=== PATIENT | male | born 1935 | race Hispanic/Latino ===

== ENCOUNTER → 2018-10-26 | Day surgery (SDC) | payer MEDICARE ==
[2018-10-25 12:41] LABS: BASOPHILS % 0.4 % (0.0-1.0); EOSINOPHILS # (AUTO) 0.3 (0.0-0.4); EOSINOPHILS % 3.7 % (0.0-6.0); HEMATOCRIT 38.2 % (38.2-49.6); HEMOGLOBIN 12.8 g/dL (14.0-18.0); LYMPHOCYTES # (AUTO) 2.1 (1.0-3.2); LYMPHOCYTES % 26.2 % (18.0-39.1); MEAN CORPUSCULAR HEMOGLOBIN 32.8 pg (28-32); MEAN CORPUSCULAR HGB CONC 33.5 g/dL (31-35); MEAN CORPUSCULAR VOLUME 97.9 fL (81-99); MONOCYTES # (AUTO) 0.7 (0.2-0.8); MONOCYTES % 8.8 % (4.4-11.3); NEUTROPHILS # (AUTO) 4.9 (2.1-6.9); NEUTROPHILS % 60.2 % (38.7-80.0); PLATELET COUNT 157 x10e3/uL (140-360); RED CELL DISTRIBUTION WIDTH 13.2 % (11.7-14.4)
--- NOTE | 2018-10-25 13:33 | Diagnostic Imaging Report ---
EXAMINATION: CHEST 2 VIEWS INDICATION: Pre-admit. COMPARISON: None FINDINGS: TUBES and LINES: None. LUNGS: Lungs are moderately inflated. There is no evidence of pneumonia or pulmonary edema. There is linear subsegmental atelectasis at the left lung base. A 7 mm nodule opacity projects over the left midlung PLEURA: No pleural effusion or pneumothorax. HEART AND MEDIASTINUM: The cardiomediastinal silhouette is unremarkable. There are atherosclerotic calcifications within the aorta. BONES AND SOFT TISSUES: No acute osseous abnormality. Partially seen right proximal humerus prosthesis. Partially seen cervical spine fixation hardware. UPPER ABDOMEN: No free air under the diaphragm. IMPRESSION: No acute radiographic abnormality. A 7 mm nodular opacity projects over the left midlung. Recommend chest CT for further evaluation. Signed by: Dr. Augusto Grey MD on 10/25/2018 1:30 PM
[~2018-10-26] MED LIST: ACETAMINOPHEN/CODEINE 300MG - 30MG TAB ONE; BUPIVACAINE HCL 0.5% INJ 30 ML VIAL INJ ONE; BUSPIRONE HCL5 MG PO; CEFAZOLIN SOD 1 GM/NS 50ML 50 ML IV ONE; DEXAMETHASONE SOD PHOS INJ 4 MG/ML VIAL ONE; DIOVAN80 MG PO; FENTANYL CITRATE/PF 100MCG/2 ML INJ ONE; FINASTERIDE5 MG PO; FLOMAX0.4 MG PO; LAMOTRIGINE100 MG PO; LIDOCAINE HCL 1% LOCAL INJ 20 ML VIAL ONE; LIDOCAINE HCL 2% LOCAL INJ 5 ML SDV VIAL INJ ONE; LOSARTAN POTASS25 MG; MEPERIDINE HCL INJ 25 MG/ML VIAL ONE; METOPROLOL SUCC50 MG PO; MIRTAZAPINE15 MG PO; NORCO 10-325 T1 EACH PO; ONDANSETRON HCL INJ 2MG/ML 2ML 2 MG/ML VIAL ONE; PROPOFOL IV EMULSION 10 MG/ML 20 ML VIAL ONE; SEVOFLURANE INHAL SOLN 250 ML PEN BTL ONE; TRAZODONE HCL50 MG PO; ULTRAM 50MG50 MG PO
--- OUTSIDE RECORDS SUMMARY | 2018-10-26 05:11 | XMS REPORT ---
Author Lauren Carcamo eClinicalWorks Address Unknown Phone Unavailable Care Team Providers Care Waitstaff Captain Name Role Phone Lauren Ortega Unavailable Allergies, Adverse Reactions, Alerts Substance Reaction Event Type N.K.D.A. Info Not Available Non Drug Allergy Encounters Encounter Location Date Unknown [facility] January 13, 2014 Dr. Murrell [facility] Feb 12, 2014 LVM [facility] Feb 12, 2014 Unknown [facility] Mar 26, 2014 Med not covered by ins [facility] December 10, 2013 appeal [facility] December 17, 2013 Confirmed [facility] December 30, 2013 Unknown [facility] Mar 17, 2015 Letter of medical necessity [facility] Apr 05, 2014 confirmed [facility] September 01, 2014 pt says that referral was sent already - jdg;conf appt/demos kd [facility] October 12, 2015 Buspirone refill [facility] Mar 20, 2015 confirmed - kd [facility] May 04, 2015 Unknown [facility] Mar 16, 2015 SCRIPT [facility] Mar 19, 2015 Problems Problem Type Condition ICD-9 Code Onset Dates Condition Status Assessment Obesity E66.9 Active Assessment Tobacco non-user Z78.9 Active Assessment Patient had no falls in past year Z78.9 Active Assessment Screening for hypertension Z13.6 Active Problem Dizziness R42 Active 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 Problem 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 Assessment 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 Problem Screening for tobacco use V70.3 Active Problem Obesity, unspecified 278.00 Active Medications Medication Code System Code Instructions Start Date End Date Status Dosage Trazodone HCl [facility] [address]-71 100 MG by mouth Q HS Active 1 tablet Celecoxib [facility] [address]-35 200 MG PO QD Active 1 capsule Finasteride [facility] [address]-75 5 MG PO QD Active 1 tablet Meclizine HCl [facility] [address]-94 25 MG Orally tid prn Active 1/2 tablet BusPIRone HCl [facility] [address]-52 10 MG Orally BID Active 1 tablet Tamsulosin HCl [facility] [address]-47 0.4 MG Orally QD Active 1 tablet Omeprazole [facility] [address]-00 20 mg PO QD Active 1 capsule Tramadol HCl [facility] [address]-41 50 MG by mouth TID Active 1-2 tablets Hydrocodone-Acetaminophen [facility] [address]-53 10-325 MG PO TID Active 1 tablet Valsartan [facility] [address]-38 80 mg PO QD Active 1 Lamictal [facility] [address]-91 25 MG Orally BID May 04, 2015 Active 2- 3 tablets Toprol XL [facility] [address]-08 50 mg PO QD Active 1 tablet Mirtazapine [facility] [address]-82 15 MG by mouth Q HS Active 1 tablet Social History Social History Element Qualifiers Date Reported Education history . Did not graduate high school yes October 12, 2015 Alcohol Screening: . Did you have a drink containing alcohol in the past year?: No, Points: 0, Interpretation: Negative October 12, 2015 Tobacco Use: . Are you a:: never smoker , Additional Findings: Tobacco Non-User: Current non-smoker October 12, 2015 Marital Status: . October 12, 2015 Do you drink alcohol? . Status: No October 12, 2015 Occupation: . Retired October 12, 2015 Vital Signs Date/Time: October 12, 2015 Weight 177 lbs Height 64 in Summary Purpose eClinicalWorks Submission
--- OUTSIDE RECORDS SUMMARY | 2018-10-26 05:11 | XMS REPORT ---
Author Author Felipa Euceda Organization eClinicalWorks Address Unknown Phone Unavailable Care Team Providers Care Operations Executive Name Role Phone Felipa Euceda CP Unavailable Allergies, Adverse Reactions, Alerts Substance Reaction Event Type N.K.D.A. 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 Assessment Obesity, unspecified 278.00 Active Assessment Screening for tobacco use V70.3 Active Medications Medication Code System Code Instructions Start Date End Date Status Dosage Mirtazapine [facility] [address]-69 15 MG by mouth Q HS Active 1 tablet Amitiza [facility] [address]-70 24 MCG by mouth BID Active 1 capsule Trazodone HCl [facility] [address]-78 100 mg by mouth Q HS Active 1 tablet BusPIRone HCl [facility] [address]-75 10 mg by mouth BID Active 1 tablet Tramadol HCl [facility] [address]-34 50 mg by mouth TID Active 1-2 tablets Hydrocodone-Acetaminophen [facility] [address]-50 10-325 MG by mouth QID Active 1 tablet Indocin SR Unknown 0 75 mg Orally BID December 09, 2013 Active 1 capsule with food Social History Social History Element Qualifiers Date Reported Education history . Did not graduate high school yes December 30, 2013 Alcohol Screening: . Did you have a drink containing alcohol in the past year?: No, Points: 0, Interpretation: Negative December 30, 2013 Tobacco Use: . Are you a:: never smoker December 30, 2013 Marital Status: . December 30, 2013 Do you drink alcohol? . Status: No December 30, 2013 Occupation: . Retired December 30, 2013 Vital Signs Date/Time: December 30, 2013 Weight 175 lbs Height 64 in Summary Purpose eClinicalWorks Submission
--- OUTSIDE RECORDS SUMMARY | 2018-10-26 05:11 | XMS REPORT ---
Author Author Lauren Ortega eClinicalWorks Address Unknown Phone Unavailable Care Team Providers Care Underwear Trimmer Name Role Phone Lauren Ortega CP Unavailable Allergies, Adverse Reactions, Alerts Substance Reaction Event Type N.K.D.A. 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 Problem Obesity, unspecified 278.00 Active Assessment 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 Assessment Encounter for long-term (current) use of other medications Z79.899 Active Assessment Tobacco non-user Z78.9 Active Assessment Screening for obesity Z13.89 Active Medications Medication Code System Code Instructions Start Date End Date Status Dosage Trazodone HCl [facility] 81956300817 100 MG by mouth Q HS Active 1 tablet Hydrocodone-Acetaminophen ND 20474361393 10-325 MG PO TID Active 1 tablet Tamsulosin HCl [facility] [address]-54 0.4 MG Orally QD Active 1 tablet Valsartan [facility] [address]-72 80 mg PO QD Active 1 BusPIRone HCl ND 46746125847 10 MG Orally BID Active 1 tablet Mirtazapine ND 18811794719 15 MG Orally at bedtime Jul 04, 2016 Active 1 tablet on the tongue and allow to dissolve before bedtime in the evening Tramadol HCl ND 91296104561 50 MG by mouth TID Active 1-2 tablets Omeprazole ND 95911555117 20 mg PO QD Active 1 capsule Lamictal ND 71049729761 25 MG orally BID Active 3 TABLETs Finasteride ND 75647080219 5 MG PO QD Active 1 tablet Toprol XL NDC [address]-82 50 mg PO QD Active 1 tablet Mirtazapine [facility] 79698543910 15 MG by mouth Q HS Active 1 tablet Vital Signs Date/Time: Jul 04, 2016 BMI 29.86 Index Weight 174 lbs Height 64 in Results No Known Results Summary Purpose eClinicalWorks Submission
--- OUTSIDE RECORDS SUMMARY | 2018-10-26 05:11 | XMS REPORT ---
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 Did not graduate high school yes December 09, 2013 Alcohol Screening: . Did you have a drink containing alcohol in the past year?: No, Points: 0, Interpretation: Negative December 09, 2013 Tobacco Use: . Are you a:: never smoker December 09, 2013 Marital Status: . December 09, 2013 Occupation: . Retired December 09, 2013 Summary Purpose eClinicalWorks Submission
--- OUTSIDE RECORDS SUMMARY | 2018-10-26 05:11 | XMS REPORT ---
Author Author Felipa Euceda Organization eClinicalWorks Address Unknown Phone Unavailable Care Team Providers Care Typewriters Functional Tester Name Role Phone Felipa Euceda CP Unavailable Allergies, Adverse Reactions, Alerts Substance Reaction Event Type N.K.D.A. Info Not Available Non Drug Allergy Encounters Encounter Location Date Unknown [facility] January 13, 2014 Dr. 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 Assessment Screening for obesity V77.8 Active Problem 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 Assessment Screening for tobacco use V70.3 Active Medications Medication Code System Code Instructions Start Date End Date Status Dosage Tramadol HCl [facility] [address]-22 50 mg by mouth TID Active 1-2 tablets [facility] [address]-28 100 mg by mouth Q HS Active 1 tablet Indocin SR Unknown 0 75 mg Orally BID December 09, 2013 Active 1 capsule with food Amitiza [facility] [address]-82 24 MCG by mouth BID Active 1 capsule BusPIRone HCl [facility] [address]-84 10 mg by mouth BID Active 1 tablet Mirtazapine [facility] [address]-15 15 MG by mouth Q HS Active 1 tablet Hydrocodone-Acetaminophen [facility] [address]-33 10-325 MG by mouth QID Active 1 tablet AcetaZOLAMIDE [facility] [address]-99 250 MG Orally qd x 3 days then bid January 13, 2014 Active 1 tablet Social History Social History Element Qualifiers Date Reported Education history . Did not graduate high school yes Mar 26, 2014 Alcohol Screening: . Did you have a drink containing alcohol in the past year?: No, Points: 0, Interpretation: Negative Mar 26, 2014 Tobacco Use: . Are you a:: never smoker , Additional Findings: Tobacco Non-User: Current non-smoker Mar 26, 2014 Marital Status: . Mar 26, 2014 Do you drink alcohol? . Status: No Mar 26, 2014 Occupation: . Retired Mar 26, 2014 Vital Signs Date/Time: January 13, 2014 Weight 170 lbs Height 64 in Summary Purpose eClinicalWorks Submission
--- OUTSIDE RECORDS SUMMARY | 2018-10-26 05:11 | XMS REPORT ---
Author Author MondayNisha eClinicalWorks Address Unknown Phone Unavailable Care Team Providers Care Leading Firefighter Name Role Phone MondayNisha CP Unavailable Encounters Encounter Location Date Unknown [facility] January 13, 2014 Dr. Murrell [facility] Feb 12, 2014 LVM [facility] Feb 12, 2014 Unknown [facility] Mar 26, 2014 Med not covered by ins [facility] December 10, 2013 appeal [facility] December 17, 2013 Confirmed [facility] December 30, 2013 Letter of medical necessity [facility] Apr 05, 2014 Problems Problem Type Condition ICD-9 Code Onset Dates Condition Status Assessment 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 Problem 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 Medications Medication Code System Code Instructions Start Date End Date Status Dosage Indomethacin [facility] [address]-60 25 MG Orally Twice a day Feb 14, 2014 Apr 15, 2014 Active 1 capsule with food BusPIRone HCl [facility] [address]-14 10 mg by mouth BID Active 1 tablet Amitiza [facility] [address]-50 24 MCG by mouth BID Active 1 capsule Tramadol HCl [facility] [address]-58 50 mg by mouth TID Active 1-2 tablets Trazodone HCl [facility] [address]-65 100 mg by mouth Q HS Active 1 tablet Nexium [facility] [address]-13 20 mg Orally QD Active 1 capsule AcetaZOLAMIDE [facility] [address]-41 250 MG Orally BID January 13, 2014 Active 1 tablet Mirtazapine [facility] [address]-37 15 MG by mouth Q HS Active 1 tablet Hydrocodone-Acetaminophen [facility] [address]-81 10-325 MG by mouth QID Active 1 tablet Social History Social History [...] 2014 Occupation: . Retired Mar 26, 2014 Summary Purpose eClinicalWorks Submission
--- OUTSIDE RECORDS SUMMARY | 2018-10-26 05:11 | XMS REPORT ---
Author Author Nisha Reese eClinicalWorks Address Unknown Phone Unavailable Care Team Providers Care Health And Safety Manager Name Role Phone MondayNisha Unavailable Encounters Encounter Location Date Med not covered by 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
--- OUTSIDE RECORDS SUMMARY | 2018-10-26 05:11 | XMS REPORT ---
Author Lauren Carcamo eClinicalWorks Address Unknown Phone Unavailable Care Team Providers Care Barrel Polisher Name Role Phone Lauren Ortega Unavailable Allergies, Adverse Reactions, Alerts Substance Reaction Event Type N.K.D.A. Info Not Available Non Drug Allergy Encounters Encounter Location Date Unknown [facility] January 13, 2014 Dr. 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 Assessment Screening for hypertension V81.1 Active Assessment Screening for obesity V77.8 Active Assessment Special screening for other specified conditions V82.89 Active Medications Medication Code System Code Instructions Start Date End Date Status Dosage Mirtazapine [facility] [address]-31 15 MG by mouth Q HS Active 1 tablet Nexium [facility] [address]-63 20 mg Orally QD Active 1 capsule Tramadol HCl [facility] [address]-02 50 mg by mouth TID Active 1-2 tablets Trazodone HCl [facility] [address]-34 100 mg by mouth Q HS Active 1 tablet Amitiza [facility] [address]-31 24 MCG by mouth BID Active 1 capsule AcetaZOLAMIDE [facility] [address]-53 250 MG Orally BID January 13, 2014 Inactive 1 tablet Hydrocodone-Acetaminophen [facility] [address]-55 10-325 MG by mouth QID Active 1 tablet BusPIRone HCl [facility] [address]-16 10 mg by mouth BID Active 1 tablet Social History Social History [...] Retired Mar 26, 2014 Vital Signs Date/Time: Feb 12, 2014 Weight 171 lbs Height 64 in Summary Purpose eClinicalWorks Submission
--- OUTSIDE RECORDS SUMMARY | 2018-10-26 05:11 | XMS REPORT ---
Author Author Nisha Reese eClinicalWorks Address Unknown Phone Unavailable Care Team Providers Care Statistical Consultant Name Role Phone MondayNisha CP Unavailable Encounters Encounter Location Date Unknown [facility] January 13, 2014 Dr. Murrell [facility] Feb 12, 2014 LVM [facility] Feb 12, 2014 Unknown [facility] Mar 26, 2014 Med not covered by ins [facility] December 10, 2013 appeal [facility] December 17, 2013 Confirmed [facility] December 30, 2013 Letter of medical necessity [facility] Apr 05, 2014 Problems Problem [...]
--- OUTSIDE RECORDS SUMMARY | 2018-10-26 05:11 | XMS REPORT ---
Author Author [facility] Address Unknown Phone Unavailable Care Team Providers Care Diffuser Operator Name Role Phone ALISA FLOWERS Unavailable Unavailable Payers Payer Name Policy Type Policy Number Effective Date Expiration Date Problems This patient has no known problems. Allergies, Adverse Reactions, Alerts Allergy Name Allergy Type Status Severity Reaction(s) Onset Date Inactive Date Treating Clinician Comments No Known Allergies DA Active U 2011-12-14 00:00:00 Medications This patient has no known medications. Results Test Description Test Time Test Comments Text Results Atomic Results Result Comments CHEST 2 VIEWS 2018-10-25 13:28:00 [place] [address] Patient Name: BRENT LOPEZ MR #: [id number] : 1935 Age/Sex: 82/M Req #: [id number] Adm Physician: Ordered by: ALISA FLOWERS MD Report #: [id number] Location: OR Room/Bed: Procedure: [id number] DX/CHEST 2 VIEWS Exam Date: 10/25/18 Exam Time: 1215 REPORT STATUS: Signed EXAMINATION: CHEST 2 VIEWS INDICATION: Pre-admit. COMPARISON: None FINDINGS: TUBES and LINES: None. LUNGS: Lungs are moderately inflated. There is no evidence of pneumonia or pulmonary edema. There is linear subsegmental atelectasis at the left lung base. A 7 mm nodule opacity projects over the left midlung PLEURA: No pleural effusion or pneumothorax. HEART AND MEDIASTINUM: The cardiomediastinal silhouette is unremarkable. There are atherosclerotic calcifications within the aorta. BONES AND SOFT TISSUES: No acute osseous abnormality. Partially seen right proximal humerus prosthesis. Partially seen cervical spine fixation hardware. UPPER ABDOMEN: No free air under the diaphragm. IMPRESSION: No acute radiographic abnormality. A 7 mm nodular opacity projects over the left midlung. Recommend chest CT for further evaluation. Signed by: Dr. Gael Vogel MD on 10/25/2018 1:30 PM Dictated By: GAEL VOGEL MD [id number] Transcribed By: LOURDES on 10/25/18 1331 COPY TO: ALISA FLOWERS MD
--- OUTSIDE RECORDS SUMMARY | 2018-10-26 05:11 | XMS REPORT ---
Author Lauren Carcamo eClinicalWorks Address Unknown Phone Unavailable Care Team Providers Care Oil And [employer] Principal Name Role Phone Lauren Ortega Unavailable Allergies, Adverse Reactions, Alerts Substance Reaction Event Type N.K.D.A. Info Not Available Non Drug Allergy Encounters Encounter Location Date Unknown [facility] January 13, 2014 Dr. Murrell [facility] Feb 12, 2014 LVM [facility] Feb 12, 2014 Unknown [facility] Mar 26, 2014 Med not covered by ins [facility] December 10, 2013 appeal [facility] December 17, 2013 Confirmed [facility] December 30, 2013 Unknown [facility] Mar 17, 2015 Letter of medical necessity [facility] Apr 05, 2014 confirmed [facility] September 01, 2014 Buspirone refill [facility] Mar 20, 2015 confirmed - kd [facility] May 04, 2015 Unknown [facility] Mar 16, 2015 SCRIPT [facility] Mar 19, 2015 Problems Problem Type Condition ICD-9 Code Onset Dates Condition Status Assessment Tobacco non-user Z78.9 Active Assessment Dizziness R42 Active Assessment Screening for hypertension Z13.6 Active Assessment Patient had no falls in past year Z78.9 Active Assessment Obesity E66.9 Active Problem Dizziness R42 Active 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 Problem 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 Assessment 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 Problem Screening for tobacco use V70.3 Active Problem Obesity, unspecified 278.00 Active Medications Medication Code System Code Instructions Start Date End Date Status Dosage Hydrocodone-Acetaminophen [facility] [address]-07 10-325 MG PO QID Active 1 tablet Tamsulosin HCl [facility] [address]-37 0.4 MG Orally QD Active 1 tablet Omeprazole [facility] [address]-92 20 mg PO QD Active 1 capsule [place] Carbonate [facility] [address]-10 150 MG Orally at bedtime Mar 16, 2015 Active 1 capsules Trazodone HCl [facility] [address]-56 100 MG by mouth Q HS Active 1 tablet Meclizine HCl [facility] [address]-81 25 MG Orally tid prn Active 1/2 tablet Celecoxib [facility] [address]-37 200 MG PO QD Active 1 capsule Mirtazapine [facility] [address]-91 15 MG by mouth Q HS Active 1 tablet Valsartan [facility] [address]-35 80 mg PO QD Active 1 Finasteride [facility] [address]-54 5 MG PO QD Active 1 tablet Lamictal [facility] [address]-17 25 MG by mouth twice a day Mar 17, 2015 Active 3 tablets Toprol XL [facility] [address]-56 50 mg PO QD Active 1 tablet BusPIRone HCl [facility] [address]-04 10 MG Orally BID Active 1 tablet Tramadol HCl [facility] [address]-53 50 MG by mouth TID Active 1-2 tablets Social History Social History Element Qualifiers Date Reported Education history . Did not graduate high school yes May 04, 2015 Alcohol Screening: . Did you have a drink containing alcohol in the past year?: No, Points: 0, Interpretation: Negative May 04, 2015 Tobacco Use: . Are you a:: never smoker , Additional Findings: Tobacco Non-User: Current non-smoker May 04, 2015 Marital Status: . May 04, 2015 Do you drink alcohol? . Status: No May 04, 2015 Occupation: . Retired May 04, 2015 Vital Signs Date/Time: May 04, 2015 Weight 176 lbs Height 64 in Summary Purpose eClinicalWorks Submission
--- OUTSIDE RECORDS SUMMARY | 2018-10-26 05:11 | XMS REPORT ---
Author Lauren Carcamo eClinicalWorks Address Unknown Phone Unavailable Care Team Providers Care Sewer Hand Name Role Phone Lauren Ortega Unavailable Allergies, Adverse Reactions, Alerts Substance Reaction Event Type N.K.D.A. Info Not Available Non Drug Allergy Encounters Encounter Location Date Unknown [facility] January 13, 2014 Dr. 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 Assessment Screening for hypertension V81.1 Active Assessment Screening for obesity V77.8 Active Assessment Obesity, unspecified 278.00 Active Assessment Special screening for other specified conditions V82.89 Active Medications Medication Code System Code Instructions Start Date End Date Status Dosage Indomethacin [facility] [address]-55 25 MG Orally Twice a day Feb 14, 2014 Apr 15, 2014 Active 1 capsule with food Hydrocodone-Acetaminophen [facility] [address]-05 10-325 MG by mouth QID Active 1 tablet AcetaZOLAMIDE [facility] [address]-67 250 MG Orally BID January 13, 2014 Inactive 1 tablet Mirtazapine [facility] [address]-21 15 MG by mouth Q HS Active 1 tablet Trazodone HCl [facility] [address]-71 100 mg by mouth Q HS Active 1 tablet Tramadol HCl [facility] [address]-22 50 mg by mouth TID Active 1-2 tablets Nexium [facility] [address]-39 20 mg Orally QD Active 1 capsule Indomethacin [facility] [address]-28 25 MG Orally Twice a day Feb 14, 2014 Apr 15, 2014 Active 1 capsule with food Amitiza [facility] [address]-92 24 MCG by mouth BID Active 1 capsule BusPIRone HCl [facility] [address]-67 10 mg by mouth BID Active 1 [...] Retired Mar 26, 2014 Vital Signs Date/Time: Mar 26, 2014 Weight 176 lbs Height 64 in Summary Purpose eClinicalWorks Submission
--- OUTSIDE RECORDS SUMMARY | 2018-10-26 05:11 | XMS REPORT | Continuity of Care Document ---
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 [facility] Patient had no falls in past year Active Diagnosis 04/28/2017 [facility] Dizziness Active Problem 04/28/2017 [facility] Psychophysiological insomnia Active Problem 04/28/2017 [facility] Screening for tobacco use Active Problem 04/28/2017 [facility] 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 [facility] Obesity, unspecified Active Problem 04/28/2017 [facility] Encounter for long-term use of other medications Active Diagnosis 04/28/2017 [facility] Tobacco non-user Active Diagnosis 04/28/2017 [facility] Screening for obesity Active Diagnosis 04/28/2017 [facility] Screening for hypertension Active Diagnosis 05/30/2014 [facility] Screening for obesity Active Diagnosis 05/30/2014 [facility] Special screening for other specified conditions Active Diagnosis 05/30/2014 [facility] Obesity Active Diagnosis 10/13/2015 [facility] Medications Medication Details Route Status Patient Instructions Ordering Provider Order Date Source Mirtazapine 1 tablet on the tongue and allow to dissolve before bedtime in the evening Orally Active 15 MG Orally at bedtime [place] 07/04/2016 [facility] Lamictal 2-3 tablets Orally Active 25 MG Orally BID [place] 05/04/2015 [facility] Lamictal 3 tablets by mouth Active 25 MG by mouth twice a day [place] 03/17/2015 [facility] R[place]us Carbonate 1 capsules Orally Active 150 MG Orally at bedtime [place] 03/16/2015 [facility] Indomethacin 1 capsule with food Orally Active 25 MG Orally Twice a day [place] 02/14/2014 [facility] AcetaZOLAMIDE 1 tablet Orally No Longer Active 250 MG Orally BID [place] 01/13/2014 [facility] Indocin SR 1 capsule with food Orally Active 75 mg Orally BID [facility] 12/09/2013 [facility] Trazodone HCl 1 tablet by mouth Active 100 MG by mouth Q HS [facility] Hydrocodone-Acetaminophen 1 tablet PO Active 10-325 MG PO TID [facility] Tamsulosin HCl 1 tablet Orally Active 0.4 MG Orally QD [facility] Valsartan 1 PO Active 80 mg PO QD [facility] BusPIRone HCl 1 tablet Orally Active 10 MG Orally BID [facility] Tramadol HCl 1-2 tablets by mouth Active 50 MG by mouth TID [facility] Omeprazole 1 capsule PO Active 20 mg PO QD [facility] Lamictal 3 TABLETs orally Active 25 MG orally BID [facility] Finasteride 1 tablet PO Active 5 MG PO QD [facility] Toprol XL 1 tablet PO Active 50 mg PO QD [facility] Mirtazapine 1 tablet by mouth Active 15 MG by mouth Q HS [facility] Mirtazapine 1 tablet by mouth Active 15 MG by mouth Q HS [facility] Amitiza 1 capsule by mouth Active 24 MCG by mouth BID [facility] Trazodone HCl 1 tablet by mouth Active 100 MG by mouth Q HS [facility] BusPIRone HCl 1 tablet Orally Active 10 MG Orally BID [facility] Tramadol HCl 1-2 tablets by mouth Active 50 MG by mouth TID [facility] Hydrocodone-Acetaminophen 1 tablet by mouth Active 10-325 MG by mouth QID [facility] Nexium 1 capsule Orally Active 20 mg Orally QD [facility] Hydrocodone-Acetaminophen 1 tablet PO Active 10-325 MG PO TID [facility] Omeprazole 1 capsule PO Active 20 mg PO QD [facility] Meclizine HCl 1/2 tablet Orally Active 25 MG Orally tid prn [facility] Celecoxib 1 capsule PO Active 200 MG PO QD [facility] Finasteride 1 tablet PO Active 5 MG PO QD [facility] Allergies, Adverse Reactions, Alerts Substance Category Reaction Severity Reaction type Status Date Reported Comments Source N.K.D.A. Adverse Reaction Info Not Available Adverse Reaction Active 07/04/2016 [facility] Immunizations Immunization Date Given Site Status Last Updated Comments Source Results Order Name Results Value Reference Range Date Interpretation Comments Source Vital Signs Vital Sign Value Date Comments Source Weight 174 07/04/2016 [facility] Height 64 07/04/2016 [facility] Weight 177 10/12/2015 [facility] Height 64 10/12/2015 [facility] Weight 176 05/04/2015 [facility] Height 64 05/04/2015 [facility] Weight 176 03/26/2014 [facility] Height 64 03/26/2014 [facility] Weight 171 02/12/2014 [facility] Height 64 02/12/2014 [facility] Weight 170 01/13/2014 [facility] Height 64 01/13/2014 [facility] Weight 175 12/30/2013 [facility] Height 64 12/30/2013 [facility] Encounters Location Location Details Encounter Type Encounter Number Reason For Visit Attending Provider ADM Date DC Date Status Source [facility] Med not covered by ins [id number] 12/10/2013 12/10/2013 [facility] Med not covered by ins [id number] 12/10/2013 12/10/2013 [facility] Med not covered by ins [id number] 12/10/2013 12/10/2013 [facility] Med not covered by ins [id number] 12/10/2013 12/10/2013 [facility] Med not covered by ins [id number] 12/10/2013 12/10/2013 [facility] Med not covered by ins [id number] 12/10/2013 12/10/2013 [facility] Med not covered by ins [id number] 12/10/2013 12/10/2013 [facility] Med not covered by ins [id number] 12/10/2013 12/10/2013 [facility] Med not covered by ins [id number] 12/10/2013 12/10/2013 [facility] Med not covered by ins [id number] 12/10/2013 12/10/2013 [facility] appeal [id number] 12/17/2013 12/17/2013 [facility] appeal [id number] 12/17/2013 12/17/2013 [facility] appeal [id number] 12/17/2013 12/17/2013 [facility] appeal [id number] 12/17/2013 12/17/2013 [facility] appeal [id number] 12/17/2013 12/17/2013 [facility] appeal [id number] 12/17/2013 12/17/2013 [facility] appeal [id number] 12/17/2013 12/17/2013 [facility] appeal [id number] 12/17/2013 12/17/2013 [facility] appeal [id number] 12/17/2013 12/17/2013 [facility] appeal [id number] 12/17/2013 12/17/2013 [facility] Confirmed [id number] 12/30/2013 12/30/2013 [facility] Confirmed [id number] 12/30/2013 12/30/2013 [facility] Confirmed [id number] 12/30/2013 12/30/2013 [facility] Confirmed [id number] 12/30/2013 12/30/2013 [facility] Confirmed [id number] 12/30/2013 12/30/2013 [facility] Confirmed [id number] 12/30/2013 12/30/2013 [facility] Confirmed [id number] 12/30/2013 12/30/2013 [facility] Confirmed [id number] 12/30/2013 12/30/2013 [facility] Unknown [id number] 01/13/2014 01/13/2014 [facility] Unknown [id number] 01/13/2014 01/13/2014 [facility] Unknown [id number] 01/13/2014 01/13/2014 [facility] Unknown [id number] 01/13/2014 01/13/2014 [facility] Unknown [id number] 01/13/2014 01/13/2014 [facility] Unknown [id number] 01/13/2014 01/13/2014 [facility] [id number] 01/13/2014 01/13/2014 [facility] [id number] 02/12/2014 02/12/2014 [facility] [id number] 02/12/2014 02/12/2014 [facility] [id number] 02/12/2014 02/12/2014 [facility] [id number] 02/12/2014 02/12/2014 [facility] [id number] 02/12/2014 02/12/2014 [facility] [id number] 02/12/2014 02/12/2014 [facility] [id number] 02/12/2014 02/12/[address] [facility] [address] Murrell [id number] 02/12/2014 02/12/[address] [facility] [address] Murrell [id number] 02/12/2014 02/12/[address] [facility] [address] Murrell [id number] 02/12/2014 02/12/[address] [facility] [address] Murrell [id number] 02/12/2014 02/12/[address] [facility] [address] Murrell [id number] 02/12/2014 02/12/[address] [facility] [address] Murrell [id number] 02/12/2014 02/12/[address] [facility] [address] Murrell [id number] 02/12/2014 02/12/2014 [facility] Unknown [id number] 03/26/2014 03/26/2014 [facility] Unknown [id number] 03/26/2014 03/26/2014 [facility] Unknown [id number] 03/26/2014 03/26/2014 [facility] Unknown [id number] 03/26/2014 03/26/2014 [facility] Unknown [id number] 03/26/2014 03/26/2014 [facility] Unknown [id number] 03/26/2014 03/26/2014 [facility] Unknown [id number] 03/26/2014 03/26/2014 [facility] Letter of medical necessity [id number] 04/05/2014 04/05/2014 [facility] Letter of medical necessity [id number] 04/05/2014 04/05/2014 [facility] Letter of medical necessity [id number] 04/05/2014 04/05/2014 [facility] Letter of medical necessity [id number] 04/05/2014 04/05/2014 [facility] Letter of medical necessity [id number] 04/05/2014 04/05/2014 [facility] Letter of medical necessity [id number] 04/05/2014 04/05/2014 [facility] Letter of medical necessity [id number] 04/05/2014 04/05/2014 [facility] confirmed [id number] 09/01/2014 09/01/2014 [facility] confirmed [id number] 09/01/2014 09/01/2014 [facility] Unknown [id number] 03/16/2015 03/16/2015 [facility] Unknown [id number] 03/16/2015 03/16/2015 [facility] Unknown [id number] 03/17/2015 03/17/2015 [facility] Unknown [id number] 03/17/2015 03/17/2015 [facility] SCRIPT [id number] 03/19/2015 03/19/2015 [facility] SCRIPT [id number] 03/19/2015 03/19/2015 [facility] Buspirone refill [id number] 03/20/2015 03/20/2015 [facility] Buspirone refill [id number] 03/20/2015 03/20/2015 [facility] confirmed - kd [id number] 05/04/2015 05/04/2015 [facility] confirmed - kd [id number] 05/04/2015 05/04/2015 [facility] pt says that referral was sent already - jdg;conf appt/shauna kd [id number] 10/12/2015 10/12/2015 [facility] Procedures Procedure Code Date Perfomer Comments Source
[2018-10-26 09:00] VITALS: BP 135/85
--- NOTE | 2018-10-30 14:53 | Operative Report ---
DATE OF PROCEDURE: 10/26/2018 SURGEON: Po Oglesby MD PREOPERATIVE DIAGNOSES: Left hydrocele, left spermatocele. POSTOPERATIVE DIAGNOSES: Left hydrocele, left spermatocele. PROCEDURES: 1. Left hydrocele repair. 2. Left spermatocele excision (entirely separate procedure for spermatocele). 3. Left spermatic cord block (entirely separate procedure for the exclusive purpose of reliving the patient's postoperative pain not required for the procedure as the patient underwent general anesthesia). ANESTHESIA: General. ESTIMATED BLOOD LOSS: Minimal. COMPLICATIONS: None. INDICATIONS FOR PROCEDURE: Mr. Lee is an 82-year-old male patient with history of symptomatic left spermatocele and hydrocele. He and I had a long discussion about alternatives, risks, and benefits of doing nothing, removal. He voiced understanding of the options, the alternatives, the risks and benefits and he elected to proceed. PROCEDURE IN DETAIL: After informed consent was obtained, the patient was taken to the operative suite, placed supine on the operative table, underwent general anesthesia by service. The patient was sterilely prepped and draped in a standard fashion for scrotal surgery. site was confirmed during time-out. A midline incision was made. It was carried through cremasters. The testicle was delivered extravaginally. Hydrocele sac was then incised. A technical services representative section was excised and passed off the table as a specimen. The sac was then inverted on itself in a bottleneck fashion and sewn closed with interrupted chromic gut sutures. Attention was then turned to the spermatocele. It was approximately 1.5 cm in size. This was then excised with a combination of Bovie electrocautery and sharp dissection. A technical services representative section was passed off the table as a specimen. The base was fulgurated and ligated. The testicle was then returned back to its normal anatomic location position. The wound was irrigated. Spermatic cord block was performed under direct vision with 0.25% Marcaine. The cremasters were then closed with running chromic gut stitch. The skin was then closed with a running chromic gut stitch. The patient was awakened from anesthesia and transferred to the recovery room in excellent condition with no untoward effects noted with all sponge and instrument counts correct x2. MD ELOISA Mehta/MARIA E /[id number] MTDD
== END | disposition home or self-care (01) ==
LOC: OR 05:08
PROVIDERS: ATTEND Urology
DX: N43.3 Hydrocele, unspecified (principal); N43.40 Spermatocele of epididymis, unspecified; Z01.810 Encounter for preprocedural cardiovascular examination; Z01.812 Encounter for preprocedural laboratory examination; Z01.811 Encounter for preprocedural respiratory examination
CPT/HCPCS: 36415; 54840; 55060; 71046; 85025; 88302; 88304; 93005; J0690; J1100; J2001; J2175; J2405; J2704

== ENCOUNTER → 2023-05-30 | Outpatient (REF) | payer MEDICARE ==
[~2023-05-30] MED LIST changes: -ACETAMINOPHEN/CODEINE 300MG - 30MG TAB ONE; -BUPIVACAINE HCL 0.5% INJ 30 ML VIAL INJ ONE; -CEFAZOLIN SOD 1 GM/NS 50ML 50 ML IV ONE; -DEXAMETHASONE SOD PHOS INJ 4 MG/ML VIAL ONE; -FENTANYL CITRATE/PF 100MCG/2 ML INJ ONE; +IOPAMIDOL 370 MG/ML 100 ML INFUS..BTL INJ ONE; -LIDOCAINE HCL 1% LOCAL INJ 20 ML VIAL ONE; -LIDOCAINE HCL 2% LOCAL INJ 5 ML SDV VIAL INJ ONE; -MEPERIDINE HCL INJ 25 MG/ML VIAL ONE; -ONDANSETRON HCL INJ 2MG/ML 2ML 2 MG/ML VIAL ONE; -PROPOFOL IV EMULSION 10 MG/ML 20 ML VIAL ONE; -SEVOFLURANE INHAL SOLN 250 ML PEN BTL ONE; +SODIUM CHLORIDE 0.9% 100 ML ONE
[2023-05-30 11:24] LABS: CREATININE, SERUM 1.65 mg/dL (0.72-1.25)
== END ==
LOC: CT 10:16
PROVIDERS: ATTEND Internal Medicine Interventional Cardiology
DX: I71.9 Aortic aneurysm of unspecified site, without rupture (principal)
CPT/HCPCS: 36415; 71275; 82565; 84520; J7050; Q9967